=== PATIENT | male | born 1950 | race Caucasian/White ===

== ENCOUNTER 2020-09-12 10:15 | Inpatient (IN) | payer BC, MEDICARE ==
[~2020-09-12] VITALS: Ht 182.9 cm; Wt 113.4 kg
[2020-09-12 11:05] LABS: BASOPHILS # (AUTO) 0.1 (0.0-0.1); BASOPHILS % 0.5 % (0.0-1.0); EOSINOPHILS # (AUTO) 0.1 (0.0-0.4); EOSINOPHILS % 0.7 % (0.0-6.0); HEMATOCRIT 43.9 % (38.2-49.6); HEMOGLOBIN 13.1 g/dL (14.0-18.0); LYMPHOCYTES # (AUTO) 5.2 (1.0-3.2); MEAN CORPUSCULAR HEMOGLOBIN 30.4 pg (28-32); MEAN CORPUSCULAR HGB CONC 29.8 g/dL (31-35); MEAN CORPUSCULAR VOLUME 101.9 fL (81-99); MONOCYTES # (AUTO) 0.3 (0.2-0.8); MONOCYTES % 2.3 % (4.4-11.3); NEUTROPHILS # (AUTO) 7.5 (2.1-6.9); NEUTROPHILS % 54.8 % (38.7-80.0); PLATELET COUNT 212 x10e3/uL (140-360); RED BLOOD COUNT 4.31 x10e6/uL (4.3-5.7); RED CELL DISTRIBUTION WIDTH 13.3 % (11.7-14.4)
[2020-09-12 11:06] LABS: CLARITY,URINE CLEAR (CLEAR); COLOR,URINE YELLOW (YELLOW)
[2020-09-12 11:07] LABS: KETONES,URINE TRACE (NEGATIVE); LEUKOCYTE ESTERASE ,URINE NEGATIVE (NEGATIVE); NITRITE,URINE NEGATIVE (NEGATIVE); PROTEIN,URINE DIPSTICK NEGATIVE (NEGATIVE); URINE UROBILINOGEN 0.2 mg/dL (0.2 - 1)
[2020-09-12 11:15] LABS: INR 1.21; PROTHROMBIN TIME 15.9 seconds (11.9-14.5)
[2020-09-12 11:16] LABS: PARTIAL THROMBOPLASTIN TIME 39.7 seconds (23.8-35.5)
[2020-09-12 11:21] LABS: BACTERIA,URINE RARE /HPF
[2020-09-12 11:25] LABS: ALBUMIN/GLOBULIN RATIO 1.2 (0.8-2.0); ANION GAP 24.4 mmol/L (8-16); CREATININE, SERUM 1.23 mg/dL (0.72-1.25); POTASSIUM 3.4 mmol/L (3.5-5.1)
[2020-09-12] MEDS ORDERED: MIDAZOLAM HCL 2 MG/2 ML VIAL IV STA (11:25)
[2020-09-12 11:28] LABS: CALCIUM 6.3 mg/dL (8.4-10.2)
[2020-09-12] MEDS ORDERED: ROCURONIUM BROMIDE 1 ML IV ONE (11:28)
[2020-09-12] MEDS ORDERED: ONDANSETRON HCL INJ 2MG/ML 2ML 2 MG/ML VIAL IV PRN (11:30)
[2020-09-12] MEDS ORDERED: CEFTRIAXONE SOD 1 GM/NS 50 ML 50 ML IV SCH (11:30)
[2020-09-12] MEDS ORDERED: PROPOFOL IV EMULSION 10MG/ML 100 ML IV PRN (11:30)
[2020-09-12] MEDS ORDERED: AZITHROMYCIN 500MG/NS 250 ML 250 ML IV ONE (11:30)
[2020-09-12] MEDS ORDERED: NOREPINEPHRINE 8 MG/D5W 250 ML 250 ML IV PRN (11:30)
[2020-09-12] MEDS ORDERED: VECURONIUM BROMIDE FOR INJ 20 MG VIAL IV STA (11:36)
[2020-09-12] MEDS ORDERED: SODIUM CHLORIDE 0.9% 1000ML 1,000 ML IV ONE (11:45)
[2020-09-12] MEDS ORDERED: FUROSEMIDE INJ 10 MG/ML 4 ML VIAL IV ONE (12:15)
[2020-09-12] MEDS ORDERED: LIDOCAINE HCL 2% LOCAL 20 ML VIAL ONE (12:19)
[2020-09-12] MEDS ORDERED: HEPARIN SOD/SOD CHLORIDE 2,000 ML ONE (12:19)
[2020-09-12] MEDS ORDERED: MIDAZOLAM HCL 2 MG/2 ML VIAL ONE (12:19)
[2020-09-12] MEDS ORDERED: FENTANYL CITRATE/PF 100MCG/2 ML INJ ONE (12:19)
[2020-09-12] MEDS ORDERED: IOPAMIDOL 370 MG/ML 200 ML INFUS..BTL INJ ONE (12:20)
[2020-09-12] MEDS ORDERED: SODIUM CHLORIDE 0.9% 1000ML 1,000 ML ONE (12:20)
[2020-09-12] MEDS ORDERED: DEXTROSE 5% 100 ML BAG IV ONE (12:26)
[2020-09-12] MEDS ORDERED: EPINEPHRINE HCL SYRINGE ONE ×2 (12:26→12:29)
[2020-09-12] MEDS ORDERED: SODIUM BICARBONATE 8.4% INJ 50 ML SYR ONE ×2 (12:26→12:29)
[2020-09-12] MEDS ORDERED: DOPAmine/D5W 1.6 MG/ML 400 MG/250ML PREMIX IV ONE (12:26)
[2020-09-12] MEDS ORDERED: ATROPINE SULFATE 0.1 MG/ML 10ML SYR ONE ×2 (12:26→12:29)
[2020-09-12] MEDS ORDERED: EPINEPHRINE HCL 1:1000 1ML 1 MG/ML AMP ONE ×2 (12:26→12:29)
[2020-09-12] MEDS ORDERED: AMIODARONE HCL INJ 150MG/3ML ONE (12:26)
[2020-09-12] MEDS ORDERED: DEXTROSE 5% 250 ML BAG IV ONE ×2 (12:26→12:29)
[2020-09-12] MEDS ORDERED: CALCIUM CHLORIDE 10% 1.36 MEQ/ML 10ML SYR IV ONE (12:29)
[2020-09-12] MEDS ORDERED: HEPARIN SOD/SOD CHLORIDE 1,000 ML ONE (12:51)
[2020-09-12] MEDS ORDERED: FUROSEMIDE INJ 10 MG/ML 4 ML VIAL ONE (13:31)
[2020-09-12] MEDS ORDERED: ASPIRIN 325 MG TAB ONE (13:43)
[2020-09-12] MEDS ORDERED: CLOPIDOGREL BISULFATE 75 MG TAB ONE (13:43)
[2020-09-12] MEDS ORDERED: SODIUM BICARBONATE 8.4% SYRING 50 ML ONE (14:28)
[2020-09-12 17:11] LABS: ABG HCO3 16 mmol/L (22-26); ABG PCO2 56 mmHg (35-45); ABG PH 7.05 (7.35-7.45); ABG PO2 82 mmHg (80-105)
[2020-09-12 17:12] LABS: ABG TCO2 17
== END 2020-09-12 14:37 | disposition expired ==
LOC: ER 10:16 → UNDOADMIN 11:24 → ERHOLD 11:24 → ER 12:40 → PACU V 14:37 → EDSTATUS 17:01
PROVIDERS: ADMIT Internal Medicine Critical Care Medicine; ATTEND Internal Medicine Critical Care Medicine
DX: I97.121 Postprocedural cardiac arrest following other surgery (principal); I50.21 Acute systolic (congestive) heart failure; I21.4 Non-ST elevation (NSTEMI) myocardial infarction; J96.00 Acute respiratory failure, unspecified whether with hypoxia or hypercapnia; E87.2 Acidosis; N17.9 Acute kidney failure, unspecified; I25.10 Atherosclerotic heart disease of native coronary artery without angina pectoris; M19.019 Primary osteoarthritis, unspecified shoulder
CPT/HCPCS: 33970; 36415; 36600; 71045; 80053; 81001; 82805; 83605; 83880; 84484; 85025; 85610; 85730; 87040; 87086; 92928; 92950; 92960; 93458; 94002; 99152; 99153; 99285; C1725; C1769; C1874; C1887; J0171; J0456; J0696; J1940; J2001; J2250; J3010; J7030; J7070; Q9967